=== PATIENT | female | born 1980 | race Caucasian/White ===

== ENCOUNTER → 2018-06-21 | Outpatient (CLI) | payer OTHER ==
[~2018-06-21] MED LIST: AZITHROMYCIN 2250 MG PO; FISH OIL SOFTG1 EACH; LEVOXYL25 MCG; PRENATAL; PROAIR HFA8.5 GM IH; PROMETRIUM
== END ==
LOC: M.ULTRA 09:14
DX: R10.9 Unspecified abdominal pain (principal); R11.0 Nausea

== ENCOUNTER → 2018-07-01 | Outpatient (CLI) | payer OTHER | LOC: M.NUC 12:28 | DX: R10.11 Right upper quadrant pain (principal); R19.7 Diarrhea, unspecified; R11.2 Nausea with vomiting, unspecified; Z88.0 Allergy status to penicillin ==

== ENCOUNTER → 2018-07-05 | Outpatient (CLI) | payer OTHER ==
[2018-07-05 11:34] LABS: ALBUMIN 3.6 g/dL (3.4-5.0); CALCIUM 8.9 mg/dL (8.5-10.1); CREATININE 0.7 mg/dL (0.6-1.3); POTASSIUM 4.2 mmol/L (3.5-5.1); TOTAL BILIRUBIN 0.1 mg/dL (<0.1-1.0); TOTAL PROTEIN 6.9 g/dL (6.4-8.2)
--- NOTE | 2018-07-05 13:27 | 2DMMODE ---
[place] [address] 2 D/M-MODE ECHOCARDIOGRAM Name: DAVIDMOHSEN G Room: [facility]#: [id number] Admission: 07/05/18 Attend Phys: Ryder Ramirez, Discharge: Date of : 78 Date of Service: 07/05/18 1327 Report #: [id number] THIS REPORT FOR: //name// APPROVED REPORT Study performed: 07/05/2018 11:49:09 EXAM: Comprehensive 2D, Doppler, and color-flow Echocardiogram Patient Location: Out-Patient Status: routine BSA: 1.55 HR: 64 bpm BP: 90/60 mmHg Rhythm: NSR Other Information Study Quality: Good Indications Palpitations 2D Dimensions LVEF(%): 52.27 (>50%) IVSd: 7.10 (7-11mm) LVOT Diam: 20.80 (18-24mm) LVDd: 41.66 mm PWd: 8.06 (7-11mm) Ascending Ao: 27.53 (22-36mm) LVDs: 30.62 (25-40mm) Aortic Root: 27.82 mm Whitt's LVEF: 52.27 % Volumes Left Atrial Volume (Systole) LA ESV Index: 20.70 mL/m2 Aortic Valve AoV Peak Jose.: 1.01 m/s AO Peak Gr.: 4.12 mmHg LVOT Max P.53 mmHg AO Mean Gr.: 2.13 mmHg LVOT Mean P.24 mmHg LVOT Max V: 0.80 m/s AO V2 VTI: 21.84 cm LVOT Mean V: 0.51 m/s DICK (VTI): 2.50 cm2 LVOT V1 VTI: 16.09 cm Mitral Valve E/A Ratio: 1.61 [place] [address] 2 D/M-MODE ECHOCARDIOGRAM Name: MOHSEN HERNANDEZ Room: [facility]#: [id number] Admission: 07/05/18 Attend Phys: Ryder Ramirez, Discharge: Date of : 78 Date of Service: 07/05/18 1327 Report #: [id number] MV Decel. Time: 155.15 ms MV E Max Jose.: 0.66 m/s MV PHT: 44.99 ms MVA (PHT): 4.89 cm2 TDI E/Lateral E': 4.40 E/Medial E': 4.71 Medial E' Jose.: 0.14 m/s Lateral E' Jose.: 0.15 m/s Pulmonary Valve PV Peak Jose.: 0.76 m/s PV Peak Gr.: 2.32 mmHg Left Ventricle The left ventricle is normal size. There is normal LV segmental wall motion. There is normal left ventricular wall thickness. Left ventricular systolic function is normal. The left ventricular ejection fraction is within the normal range. LVEF is 50-55%. The left ventricular diastolic function is normal. Right Ventricle The right ventricle is normal size. The right ventricular systolic function is normal. Atria The left atrium size is normal. The right atrium size is normal. Aortic Valve The aortic valve is normal in structure. No aortic regurgitation is present. There is no aortic valvular stenosis. Mitral Valve The mitral valve is normal in structure. There is no mitral valve regurgitation noted. No evidence of mitral valve stenosis. Tricuspid Valve The tricuspid valve is normal in structure. There is no tricuspid valve regurgitation noted. Pulmonic Valve Pulmonic valve is not well visualized. There is no pulmonic valvular regurgitation. Great Vessels The aortic root is normal in size. IVC [place] [address] 2 D/M-MODE ECHOCARDIOGRAM Name: MOHSEN HERNANDEZ Room: [facility]#: [id number] Admission: 07/05/18 Attend Phys: Ryder Ramirez, Discharge: Date of : 78 Date of Service: 07/05/18 1327 Report #: [id number] collapses with >50% inspiration Pericardium There is no pericardial effusion. <Conclusion> Left ventricular systolic function is normal. The left ventricular ejection fraction is within the normal range. <ELECTRONICALLY SIGNED> By: Ashu Wilcox MD, [facility] 07/05/181326 26 26 Ashu Wilcox MD, FAC /INF
== END ==
LOC: M.LAB 10:57 → M.CRD 10:57
PROVIDERS: Internal Medicine Cardiovascular Disease
DX: E03.8 Other specified hypothyroidism (principal); E06.3 Autoimmune thyroiditis; R00.2 Palpitations

== ENCOUNTER → 2021-03-25 | Outpatient (CLI) | payer OTHER, MEDICARE | LOC: M.MRI 13:21 | PROVIDERS: ATTEND Registered Nurse Diabetes Educator | DX: M50.23 Other cervical disc displacement, cervicothoracic region (principal); R42 Dizziness and giddiness; H53.9 Unspecified visual disturbance; R20.2 Paresthesia of skin; Z82.0 Family history of epilepsy and other diseases of the nervous system ==

== ENCOUNTER → 2021-04-01 | Outpatient (CLI) | payer OTHER | LOC: M.MRI 03-02 08:28 | PROVIDERS: ATTEND Registered Nurse Diabetes Educator | DX: M51.36 Other intervertebral disc degeneration, lumbar region (principal); M48.061 Spinal stenosis, lumbar region without neurogenic claudication; R42 Dizziness and giddiness; H53.9 Unspecified visual disturbance; R20.0 Anesthesia of skin; Z82.0 Family history of epilepsy and other diseases of the nervous system ==

== ENCOUNTER → 2021-04-06 | Outpatient (CLI) | payer OTHER, MEDICARE ==
[2021-04-06 11:47] LABS: CREATININE 0.8 mg/dL (0.6-1.3)
== END ==
LOC: M.CT 11:00
PROVIDERS: ATTEND Registered Nurse Diabetes Educator
DX: E04.1 Nontoxic single thyroid nodule (principal); Q89.2 Congenital malformations of other endocrine glands

== ENCOUNTER → 2021-10-12 | Outpatient (CLI) | payer MEDICARE | LOC: M.RAD 12:30 | PROVIDERS: ATTEND Internal Medicine | DX: M25.511 Pain in right shoulder (principal) ==